=== PATIENT | male | born 1975 | race Caucasian/White ===

== ENCOUNTER 2019-06-08 13:02 | Emergency (ER) | payer MEDICAID ==
[~2019-06-08] VITALS: Ht 180.3 cm; Wt 99.1 kg
[2019-06-08 13:19] VITALS: BP 131/89
--- NOTE | 2019-06-08 13:31 | NUR ---
PT HERE FOR SORE THROAT THAT STARTED A FEW DAYS AGO. WORSE ON LEFT THAN RIGHT. ALSO STATES HE WOULD LIKE TO BE CHECKED FOR STDS. RECENTLY HAD UNPROTECTED SEX. SITTING ON GURNEY. CABRERA.
[2019-06-08] MEDS ORDERED: AZITHROMYCIN 500 MG TABLET ONE (13:59)
[2019-06-08] MEDS ORDERED: CEFTRIAXONE 250 MG ONE (13:59)
[2019-06-08] MEDS ORDERED: CEFTRIAXONE 250 MG IM ONE (14:00)
[2019-06-08] MEDS ORDERED: AZITHROMYCIN 500 MG TABLET PO ONE (14:00)
== END 2019-06-08 14:12 | disposition home or self-care (01) ==
LOC: ED 13:45
DX: J02.8 Acute pharyngitis due to other specified organisms (principal); B97.89 Other viral agents as the cause of diseases classified elsewhere; F17.200 Nicotine dependence, unspecified, uncomplicated
CPT/HCPCS: 87491; 87591; 96372; 99283; J0696